=== PATIENT | male | born 1995 | race Caucasian/White ===

== ENCOUNTER 2025-02-05 10:14 | Emergency (ER) | payer OTHER, SELFPAY ==
[2025-02-05 10:15] VITALS: BMI 17.7
[2025-02-05 10:16] VITALS: BP 140/79
[2025-02-05 10:39] LABS: Hematocrit 41.9 % (39.0-52.0); Hemoglobin 14.6 g/dL (13.0-18.0); Mean Corp Hgb Conc. 34.8 g/dL (33.0-37.0); Mean Corpuscular Hgb 33.1 pg (27.0-31.0); Platelet Count 282 10^3/uL (130-400); Red Blood Cell Count 4.41 10^6/uL (4.70-6.10); Red Cell Dist. Width 11.9 % (11.5-14.5); White Blood Cell Count 7.9 10^3/uL (4.8-10.8)
--- NOTE | 2025-02-05 10:51 | ED.GENMED ---
History of Present Illness
General
Chief Complaint: Fainting/Passed Out
Source: patient
Exam Limitations: none
Time Seen by Provider: 02/05/25 10:35
History of Present Illness
History of Present Illness:
29yoM with no significant past medical history presenting via EMS for evaluation of syncope. Patient has been sick with a cold for about 1.5 weeks. He was feeling fatigued when he woke up this morning but was able to go to work. He was standing
for about 7 minutes speaking with his boss when he suddenly felt lightheaded and became sweaty. He felt like he had to sit down so sat down. He then had a witnessed syncopal episode and was unconscious for about 5 seconds. Boss immediately called
911. His coworkers removed his T-shirt to try to cool him down and he had a second syncopal episode which also lasted a few seconds. He is currently feeling much better. He denies any chest pain or shortness of breath. No seizure-like activity,
tongue biting, or incontinence.
Past History
Past History
ED Past Medical History: None
ED Past Surgical History: None
Social History
Tobacco: Non-smoker
Alcohol: None
Drug: None
Personal: Single
Living: with family
Employment: Student
Phy Exam
General Physical Exam
General Presentation: well appearing and no apparent distress
General Skin: warm and dry
General Habitus: normal
General Mental: alert
ENT Exam
ENT Exam: normocephalic
Cardiovascular Exam
Cardiovascular Exam: regular rate/rhythm, no edema and no murmur
Pulmonary Exam
Pulmonary Exam: lungs clear, no respiratory distress, no rales, no crackles, no rhonchi and no wheezing
Neurological Exam
Neurological Exam: alert
[place] Coma Scale
Eye Opening: Spontaneous
Verbal Response: Oriented
Motor Response: Obeys Commands
GCS Total Score: 15
Skin Exam
Skin Exam: normal color and warm/dry
Psychiatric Exam
Psychiatric Exam: normal mood/affect
Course
Orders/Labs/Results
Orders:
Orders
02/05/25 10:28
Basic Metabolic Panel Urgent
CBC/No Diff [Complete Blood Count/No Diff] Urgent
COVID-19 Antigen Urgent
Source: Nasal Swab
02/05/25 10:36
Electrocardiogram (*1) Urgent
Reason for Study: Syncope
EKG- Treatment ONCE
02/05/25 10:51
0.9% Sodium Chloride 1000 ml [Nss] 1,000 ml IV BOLUS
CR Chest - 2 Views Urgent
Comment:
Reason For Exam: cough
02/05/25 11:03
Troponin I Urgent
Influenza A+B Rapid Molecular Urgent
CHRISTIN Source: Nasal Swab
Specimen Description:
Abnormal Lab Results
02/05/25
10:28
RBC 4.41 L 10^6/uL
(4.70-6.10)
MCV 95.0 H fL
(80.0-94.0)
MCH 33.1 H pg
(27.0-31.0)
BUN 21 H mg/dl
(9-20)
02/05/25 10:28
02/05/25 10:28
Vital Signs
Initial and Last Documented VS:
Initial Vital Signs
Temp Pulse Resp BP Pulse Ox
97.8 F 76 18 140/79 100
02/05/25 10:16 02/05/25 10:16 02/05/25 10:16 02/05/25 10:16 02/05/25 10:16
Last Documented Vital Signs
Temp Pulse Resp BP Pulse Ox
98 F 66 16 122/80 99
02/05/25 12:57 02/05/25 12:57 02/05/25 12:57 02/05/25 12:57 02/05/25 12:57
MDM/Problems Addressed
Differential Diagnosis Includes:
29yoM here for syncope. Standing when he became lightheaded and sweaty. Witnessed syncopal episode lasting a few seconds. Had a second syncopal episode shortly afterwards. Currently feeling much better. Denies CP/SOB. No pertinent PMH. VSS. He is
well appearing in no distress. Exam is ressuring. Differential diagnosis includes but is not limited to: dehydration, orthostatic hypotension, vasovagal episode, less likely cardiogenic, no reported seizure like activity
Initial ED plan: Check cardiac labs, COVID/flu swab, EKG, and CXR. IV fluid bolus.
*Pulse Oximetry
Patient hypoxic: no (99%)
*EKG
Interpreted by ED Provider?: Yes
EKG Intrepretation Date: 02/05/25
Heart Rate: 75
Rate: normal
Rhythm: sinus
[place]: normal axis
Interval: normal interval
QRS Pattern: normal QRS
Ischemia: no ischemia
*Critical Care Note
Total Time (30-74mins, 75-104mins- exclusive of procedures): Not Applicable
Update Note
Update Note:
Labs overall unremarkable. EKG shows normal sinus rhythm without ischemic changes or ectopy and troponin within normal limits. Viral testing negative. Chest x-ray appears normal per my interpretation. Patient asymptomatic on reassessment. No
indication for hospitalization. Advised close follow-up with PCP and ED return precautions reviewed. Patient in agreement with plan and was discharged in stable condition.
ED Attending Note
-
Portions of this chart may have been created with voice recognition software.� Occasional wrong word or��sound alike� substitutions may have occurred due to the inherent limitations of voice recognition software.
Discharge Plan
Departure
Patient Disposition: Home (Routine Discharge)
Date of Disposition: 02/05/25
Time of Disposition: 12:41
Patient with high blood pressure during this ER visit?: Yes
Discharge Problem:
Syncope
Instructions: Syncope (Fainting) (DC)
Prescriptions:
No Action
prednisone 10 MG tablet
10 mg PO .TAPER Qty: 30 0RF
Rx Instructions:
Take [id number], [id number], 52uou0rzvn, 81dec5ukur, 21zxa6nvvt
clindamycin HCl 150 MG capsule
150 mg PO QID Qty: 40 0RF
amoxicillin 500 MG capsule
500 mg PO TID
Ibuprofen
400 mg PO PRN (Reason: pain/fever)
doxycycline hyclate 100 mg tablet
100 mg PO BID Qty: 13 0RF
Referrals:
Yannick Mcmullen I., DO [Family Provider, Internal Medicine]
Stand Alone Forms: Return to Work
Activity Restrictions/Additional Instructions:
Please call your family doctor today to schedule a follow-up appointment. Return to the ER with any new or worsening symptoms.
Interventions
Interventions:
*Risk Screen - Suicide Last Done: 02/05/25 12:58
*General Assessment Last Done: 02/05/25 10:16
*Neglect/Abuse Screening Last Done: 02/05/25 10:16
*ED- Fall Risk Assessment Last Done: 02/05/25 10:16
*ED COVID-19 Vaccine History Last Done: 02/05/25 10:16
*Nursing Disposition Last Done: 02/05/25 12:58
ED- Cardiac Assessment Last Done: 02/05/25 10:16
ED- Neurological Assessment Last Done: 02/05/25 10:16
Discharge Date and Time
Discharge Date/Time: 02/05/25 12:59
Print Language: BRITISH
[2025-02-05 11:00] VITALS: BP 138/76
[2025-02-05 11:06] LABS: COVID-19 Antigen Negative (Negative)
[2025-02-05 11:15] LABS: Blood Urea Nitrogen 21 mg/dl (9-20); Calcium 9.2 mg/dl (8.4-10.2); Carbon Dioxide 26 mmol/L (22-30); Chloride 106 mmol/L (98-107); Estimated Creatinine Clearance 94 ml/min; Glucose 88 mg/dl (70-99); Sodium 139 mmol/L (135-145); eGFR > 60.00
[2025-02-05] MEDS: NSS 1000 IV (11:22)
[2025-02-05 11:38] LABS: Troponin I < 0.012 ng/ml
[2025-02-05 12:57] VITALS: BP 122/80
== END 2025-02-05 12:59 | disposition home or self-care (01) ==
LOC: EMR 10:14
PROVIDERS: Physician Assistant; EMERGENCY PHYSICIAN Emergency Medicine; FAMILY PHYSICIAN Internal Medicine
DX: R55 Syncope and collapse (principal); Z11.52 Encounter for screening for COVID-19
CPT/HCPCS: 99285; 96360; 71046; 80048; 84484; 85027; 87502; 87811; 93005